=== PATIENT | male | born 1935 | race Caucasian/White ===

== ENCOUNTER 2018-05-07 13:25 | Emergency (ER) | payer MEDICARE ==
[~2018-05-07] VITALS: Ht 165.1 cm; Wt 67.0 kg
[2018-05-07] MEDS ORDERED: CefTRIAXone 1000mg IM Kit (w/lidocaine diluent) IM ONE (14:05)
[2018-05-07 14:17] LABS: CLARITY,URINE TURBID (Clear); COLOR,URINE YELLOW (Yellow); GLUCOSE, URINE NEGATIVE (Neg); KETONES,URINE NEGATIVE (Neg); LEUKOCYTE ESTERASE ,URINE LARGE (Neg); NITRITES, URINE NEGATIVE (Neg); OCCULT BLOOD,URINE MODERATE (Neg); PROTEIN,URINE 100 mg/dl (Neg); UROBILINOGEN,URINE 0.2 E.U/dL (0.2-1.0)
[2018-05-07 14:18] LABS: UA COLLECTION TYPE OTHER
[2018-05-07 14:26] LABS: BACTERIA,URINE 4+ /HPF (Neg); MUCUS STRANDS NONE SEEN /LPF (Neg); SQUAMOUS EPITHELIAL CELL,UR NONE SEEN /LPF (FEW); WBC CLUMPS,URINE MANY /HPF (NEGATIVE); WBC,URINE TNTC /HPF (0-4)
[2018-05-07 14:31] LABS: BASOPHILS % (AUTO) 0.3 % (0-1); EOSINOPHILS # (AUTO) 0.1 X10'3 (0-0.9); EOSINOPHILS % (AUTO) 0.6 % (0-6); HEMATOCRIT 34.8 % (42.0-52.0); HEMOGLOBIN 11.6 g/dl (14.0-17.9); LYMPHOCYTES # (AUTO) 0.6 X10'3 (1.1-4.8); LYMPHOCYTES % (AUTO) 7.3 % (21-51); MEAN CORPUSCULAR HEMOGLOBIN 29.8 PG (27.0-31.0); MEAN CORPUSCULAR HGB CONC 33.3 % (33.0-36.5); MEAN CORPUSCULAR VOLUME 89.5 FL (78-98); MEAN PLATELET VOLUME 9.6 FL (7.4-10.4); MONOCYTES # (AUTO) 1.2 X10'3 (0-0.9); MONOCYTES % (AUTO) 14.2 % (2-12); NEUTROPHILS # (AUTO) 6.5 X10'3 (1.8-7.7); NEUTROPHILS % (AUTO) 77.6 % (42-75); PLATELET COUNT 210 X10'3 (140-440); RED BLOOD COUNT 3.89 X10'6 (4.70-6.10); RED CELL DISTRIBUTION WIDTH 13.7 % (11.5-14.5); WHITE BLOOD COUNT 8.4 X10'3 (4.5-11.0)
[2018-05-07] MEDS ORDERED: CEPH500C5 PO (14:37)
[2018-05-07 14:40] LABS: ALBUMIN 2.7 G/DL (3.4-5.0); ANION GAP 13 (8-16); BLOOD UREA NITROGEN 52 MG/DL (7-18); BUN/CREATININE RATIO 19.7 (5.4-32.0); CALCIUM 8.7 MG/DL (8.5-10.1); CHLORIDE 90 MMOL/L (99-107); CREATININE 2.64 MG/DL (0.60-1.10); GLUCOSE 110 MG/DL (70-104); POTASSIUM 4.3 MMOL/L (3.5-5.1); SODIUM 123 MMOL/L (135-145); eGFR 23 ML/MIN
[2018-05-07] MEDS ORDERED: normal saline 1000ML IV soln IVB ONE (15:05)
[2018-05-07] MEDS ORDERED: CefTRIAXone/D5W-Rocephin 1gm 50 ML IV ONE (15:31)
[2018-05-07 16:28] VITALS: BP 115/62
== END 2018-05-07 16:29 | disposition home or self-care (01) ==
LOC: ER 13:26
DX: N39.0 Urinary tract infection, site not specified (principal); E87.1 Hypo-osmolality and hyponatremia; Z98.890 Other specified postprocedural states; Z60.2 Problems related to living alone; Z79.2 Long term (current) use of antibiotics
CPT/HCPCS: 36415; 80048; 81001; 85025; 96365; 96372; 99283; J0696; J7030

== ENCOUNTER 2022-01-07 12:05 | Inpatient (IN) | payer MEDICARE ==
[~2022-01-07] VITALS: Ht 162.6 cm; Wt 58.9 kg
[~2022-01-07 12:05] MED LIST: CEPH-571 PO
[2022-01-07] MEDS ORDERED: aspirin 81mg tab.chew PO ONE (12:20)
[2022-01-07] MEDS ORDERED: ATOR20TA66 PO (12:28)
[2022-01-07] MEDS ORDERED: HYDR-4070 PO (12:28)
[2022-01-07] MEDS ORDERED: NITR0.4T48 SL (12:28)
[2022-01-07] MEDS ORDERED: METO25TA6 PO (12:28)
[2022-01-07] MEDS ORDERED: CLOP75TA34 PO (12:28)
[2022-01-07] MEDS ORDERED: ASPI-1264 PO (12:30)
[2022-01-07] MEDS ORDERED: ASCO500C18 PO (12:30)
[2022-01-07] MEDS ORDERED: MULT-1074 PO (12:30)
[2022-01-07] MEDS ORDERED: MULT-1141 PO (12:30)
[2022-01-07] MEDS ORDERED: MELA1TAB28 PO (12:31)
[2022-01-07 13:00] LABS: BASOPHILS % (AUTO) 0.9 % (0-1); EOSINOPHILS % (AUTO) 0.7 % (0-6); HEMOGLOBIN 11.9 g/dl (14.0-17.9); LYMPHOCYTES # (AUTO) 0.6 X10'3 (1.1-4.8); LYMPHOCYTES % (AUTO) 12.6 % (21-51); MEAN CORPUSCULAR HEMOGLOBIN 30.1 PG (27.0-31.0); MEAN CORPUSCULAR HGB CONC 33.1 g/dL (33.0-36.5); MEAN CORPUSCULAR VOLUME 91.2 FL (78-98); MEAN PLATELET VOLUME 10.7 FL (7.4-10.4); MONOCYTES # (AUTO) 0.6 X10'3 (0-0.9); MONOCYTES % (AUTO) 12.4 % (2-12); NEUTROPHILS # (AUTO) 3.7 X10'3 (1.8-7.7); NEUTROPHILS % (AUTO) 73.4 % (42-75); PLATELET COUNT 145 X10'3 (140-440); RED BLOOD COUNT 3.95 X10'6 (4.70-6.10); RED CELL DISTRIBUTION WIDTH 15.1 % (11.5-14.5); WHITE BLOOD COUNT 5.1 X10'3 (4.5-11.0)
[2022-01-07 13:27] LABS: ALANINE AMINOTRANSFERASE 25 U/L (12-78); ALBUMIN 3.2 G/DL (3.4-5.0); ALBUMIN/GLOBULIN RATIO 0.8 (1.1-1.5); ALKALINE PHOSPHATASE 85 IU/L (46-116); ANION GAP 11 (8-16); ASPARTATE AMINO TRANSFERASE 34 U/L (10-37); BILIRUBIN,TOTAL 0.5 MG/DL (0.1-1.0); BLOOD UREA NITROGEN 33 MG/DL (7-18); CALCIUM 8.7 MG/DL (8.5-10.1); CHLORIDE 101 MMOL/L (99-107); CREATININE 1.94 MG/DL (0.60-1.10); GLUCOSE 99 MG/DL (70-104); POTASSIUM 4.3 MMOL/L (3.5-5.1); SODIUM 134 MMOL/L (135-145); TOTAL CARBON DIOXIDE 22.5 MMOL/L (24-32); TOTAL PROTEIN 7.1 G/DL (6.4-8.2); eGFR 33 ML/MIN
[2022-01-07 13:50] LABS: BURR CELLS 1+; PLATELET ESTIMATE NORMAL
[2022-01-07 13:51] LABS: ACANTHOCYTES FEW; ELLIPTOCYTES FEW; SCHISTOCYTES FEW
[2022-01-07] MEDS ORDERED: heparin 10,000 units/1 ML INJ IV ONE (14:25)
[2022-01-07] MEDS ORDERED: HEPARIN SOD,PORK IN 0.45% NACL 250 ML IV SCH (14:25)
[2022-01-07] MEDS ORDERED: HYDROcodone/acetaminophen 10/325mg tab PO PRN (14:35)
[2022-01-07] MEDS ORDERED: HYDROcodone/acetaminophen 5mg/325mg tablet PO PRN (14:35)
[2022-01-07] MEDS ORDERED: ondansetron/PF 4mg/2ml inj IV PRN (14:35)
[2022-01-07] MEDS ORDERED: magnesium Cl slow-release 64mg tablet PO PRN (14:35)
[2022-01-07] MEDS ORDERED: PERFLUTREN PROTEIN-A MICROSPHR (Optison) 0.22 MG/ML 3ML VIAL IV ONE (14:35)
[2022-01-07] MEDS ORDERED: morphine 2 MG/ML inj. syringe IV PRN ×2 (14:35)
[2022-01-07] MEDS ORDERED: magnesium 4gm in 100ml NS 100 ML IV PRN (14:35)
[2022-01-07] MEDS ORDERED: ondansetron 4mg rapidly disintigrating tab PO PRN (14:35)
[2022-01-07] MEDS ORDERED: magnesium hydroxide 30ml (MOM) UD suspension PO PRN (14:35)
[2022-01-07] MEDS ORDERED: diphenhydrAMINE 25mg capsule PO PRN (14:35)
[2022-01-07] MEDS ORDERED: magnesium 2GM in 50ml NS 50 ML IV PRN (14:35)
[2022-01-07] MEDS ORDERED: acetaminophen 650mg rectal suppository RC PRN (14:35)
[2022-01-07] MEDS ORDERED: potassium CL 10mEq/100ml bag 100 ML IV PRN (14:35)
[2022-01-07] MEDS ORDERED: POTASSIUM BICARB 20meq eff tab 20 MEQ TABLET.EFF PO PRN (14:35)
[2022-01-07] MEDS ORDERED: mag hydrox/Alum hydrox/simeth 30ml oral suspension PO PRN (14:35)
[2022-01-07] MEDS ORDERED: acetaminophen 325mg tablet PO PRN ×2 (14:35)
[2022-01-07] MEDS ORDERED: bisacodyl 10mg suppository rectal RC PRN (14:35)
[2022-01-07] MEDS: HEPARIN SOD,PORK IN 0.45% NACL 250 ML IV SCH (14:54)
--- NOTE | 2022-01-07 15:15 | NUR ---
DR GUERIN AND DR CLEMONS AT BEDSIDE TO ASSESS PATIENT AT THIS TIME.
[2022-01-07] MEDS ORDERED: Melatonin 3mg tablet PO PRN (15:35)
[2022-01-07 16:40] LABS: APTT > 139 SECONDS (22-32)
--- NOTE | 2022-01-07 16:45 | NUR ---
Page sent to Dr Hemphill for PTT >139, heparin infusion stopped per protocol (see EMAR).
[2022-01-07] MEDS: hydrALAZINE 25 MG tablet PO SCH (18:23)
[2022-01-07] MEDS: K and/or MAG REPLACEMENT MC SCH (19:58)
[2022-01-07] MEDS: docusate sod 100mg capsule PO SCH (20:00)
[2022-01-07] MEDS: metoprolol tartrate 25mg tablet PO SCH (20:44)
[2022-01-07] MEDS ORDERED: temazepam 15mg capsule PO ONE (21:00)
--- NOTE | 2022-01-08 06:12 | NUR ---
PT DAUGHTER AND SARA GRADY WOULD APPRECIATE BEING PROVIDED UPDATES. CONTACT VIA [phone] OR [phone]
[2022-01-08] MEDS: hydrALAZINE 25 MG tablet PO SCH ×2 (08:00→18:08)
[2022-01-08] MEDS ORDERED: furosemide 10 MG/1 ML 10ml inj IV ONE (08:00)
[2022-01-08] MEDS: K and/or MAG REPLACEMENT MC SCH ×2 (08:00→20:00)
[2022-01-08] MEDS: aspirin 325mg tablet PO SCH (08:00)
[2022-01-08] MEDS: atorvastatin 20mg tablet PO SCH (08:01)
[2022-01-08] MEDS: ascorbic acid 500mg tablet PO SCH (08:01)
[2022-01-08] MEDS: docusate sod 100mg capsule PO SCH ×2 (08:01→20:04)
[2022-01-08] MEDS: multivitamins, therapeutics tablet PO SCH (08:02)
[2022-01-08] MEDS: metoprolol tartrate 25mg tablet PO SCH ×2 (08:02→20:05)
[2022-01-08 09:27] LABS: BASOPHILS # (AUTO) 0.1 X10'3 (0-0.2); BASOPHILS % (AUTO) 1.3 % (0-1); EOSINOPHILS # (AUTO) 0.1 X10'3 (0-0.9); EOSINOPHILS % (AUTO) 2.7 % (0-6); HEMATOCRIT 34.4 % (42.0-52.0); HEMOGLOBIN 11.4 g/dl (14.0-17.9); LYMPHOCYTES # (AUTO) 0.8 X10'3 (1.1-4.8); LYMPHOCYTES % (AUTO) 18.7 % (21-51); MEAN CORPUSCULAR HEMOGLOBIN 30.4 PG (27.0-31.0); MEAN CORPUSCULAR HGB CONC 33.1 g/dL (33.0-36.5); MEAN CORPUSCULAR VOLUME 91.7 FL (78-98); MEAN PLATELET VOLUME 10.5 FL (7.4-10.4); MONOCYTES # (AUTO) 0.6 X10'3 (0-0.9); MONOCYTES % (AUTO) 14.4 % (2-12); NEUTROPHILS # (AUTO) 2.7 X10'3 (1.8-7.7); NEUTROPHILS % (AUTO) 62.9 % (42-75); PLATELET COUNT 124 X10'3 (140-440); RED BLOOD COUNT 3.75 X10'6 (4.70-6.10); WHITE BLOOD COUNT 4.3 X10'3 (4.5-11.0)
[2022-01-08 09:53] LABS: ALANINE AMINOTRANSFERASE 21 U/L (12-78); ALBUMIN 2.9 G/DL (3.4-5.0); ALBUMIN/GLOBULIN RATIO 0.8 (1.1-1.5); ALKALINE PHOSPHATASE 79 IU/L (46-116); ANION GAP 15 (8-16); ASPARTATE AMINO TRANSFERASE 31 U/L (10-37); BILIRUBIN,TOTAL 0.5 MG/DL (0.1-1.0); BLOOD UREA NITROGEN 31 MG/DL (7-18); BUN/CREATININE RATIO 16.8 (5.4-32.0); CALCIUM 8.5 MG/DL (8.5-10.1); CHLORIDE 103 MMOL/L (99-107); CHOL/HDL RATIO 1.8 (0.00-4.99); CHOLESTEROL 94 MG/DL (0-200); CREATININE 1.85 MG/DL (0.60-1.10); GLUCOSE 100 MG/DL (70-104); HDL CHOLESTEROL 51 MG/DL (35-60); LDL CHOLESTEROL 37 MG/DL (50-100); MAGNESIUM 2.1 MG/DL (1.5-2.4); PHOSPHORUS 3.9 MG/DL (2.3-4.5); POTASSIUM 3.9 MMOL/L (3.5-5.1); SODIUM 138 MMOL/L (135-145); TOTAL CARBON DIOXIDE 19.8 MMOL/L (24-32); TOTAL PROTEIN 6.6 G/DL (6.4-8.2); TRIGLYCERIDES 41 MG/DL (20-135); eGFR 35 ML/MIN
--- NOTE | 2022-01-08 10:40 | NUR ---
Received report from ED RN, Eden
[2022-01-08] MEDS: heparin 10,000 units/1 ML INJ IV PRN (11:02)
[2022-01-08] MEDS: HEPARIN SOD,PORK IN 0.45% NACL 250 ML IV SCH ×2 (11:40→19:04)
[2022-01-08 11:45] VITALS: BP 128/75
[2022-01-08] MEDS: clopidogrel 75mg tablet PO SCH (12:53)
[2022-01-08 13:40] VITALS: BP 129/77
[2022-01-08] MEDS ORDERED: LIDOcaine 1%/PF 5ML 10 MG/ML VIAL ONE (14:59)
[2022-01-08 15:00] VITALS: BP 114/64
[2022-01-08 15:50] VITALS: BP 115/69
[2022-01-08 16:22] LABS: BFSOURCE LEFT PLEURAL FLD; PLEURAL FLUID PH 7.522 (7.63-7.65)
[2022-01-08 16:43] LABS: GLUCOSE,BODY FLUID 103 MG/DL; LDH,BODY FLUID 51 U/L; TOTAL PROTEIN,BODY FLUID 2.1 G/DL
[2022-01-08 17:07] LABS: CLARITY,URINE CLOUDY (Clear); GLUCOSE, URINE NEGATIVE (Neg); KETONES,URINE NEGATIVE (Neg); LEUKOCYTE ESTERASE ,URINE LARGE (Neg); NITRITES, URINE POSITIVE (Neg); OCCULT BLOOD,URINE SMALL (Neg); PH,URINE 8.5 (4.8-8.0); PROTEIN,URINE NEGATIVE (Neg); UROBILINOGEN,URINE 0.2 E.U/dL (0.2-1.0)
[2022-01-08 17:10] LABS: BF RBC COUNT 31 /CU MM; BF WBC COUNT 127 /CU MM (0-1000); BFAPPEAR HAZY; BFCOLOR YELLOW; BFVOLUME 50 ML; LYMPHOCYTES,BODY FLUID 58 %; MONOCYTES,BODY FLUID 32 %; NEUTROPHILS,BODY FLUID 10 %
[2022-01-08 17:14] LABS: COLOR,URINE STRAW (Yellow); UA COLLECTION TYPE NON-SPECIFIED
[2022-01-08 17:16] LABS: BACTERIA,URINE 4+ /HPF (Neg); MUCUS STRANDS MODERATE /LPF (Neg); SQUAMOUS EPITHELIAL CELL,UR FEW /LPF (FEW); TRIPLE PHOSPHATE CRYST 3+ /HPF (NEGATIVE); WBC,URINE 20-30 /HPF (0-4)
[2022-01-08] MEDS ORDERED: temazepam 15mg capsule PO PRN (18:25)
--- NOTE | 2022-01-08 19:30 | NUR ---
Problems reprioritized. Patient report given, questions answered & plan of care reviewed with ETELVINA Sales.
[2022-01-08] MEDS: furosemide 10 MG/1 ML 10ml inj IV SCH (20:04)
[2022-01-09 02:00] VITALS: BP 112/67
[2022-01-09] MEDS: HEPARIN SOD,PORK IN 0.45% NACL 250 ML IV SCH ×2 (02:40→11:40)
[2022-01-09] MEDS: heparin 10,000 units/1 ML INJ IV PRN (02:42)
[2022-01-09 06:00] VITALS: BP 123/66
--- NOTE | 2022-01-09 06:30 | NUR ---
Patient in room PCU 3026. I have received report from ETELVINA Sales and had the opportunity to ask questions and assume patient care.
--- NOTE | 2022-01-09 06:39 | NUR ---
Problems reprioritized. Patient report given, questions answered & plan of care reviewed with [facility] MAIN. Addendum: 01/09/22 at 0639 by Mónica Agustin RN Amended: Links added.
[2022-01-09] MEDS: metoprolol tartrate 25mg tablet PO SCH (08:00)
[2022-01-09 10:28] LABS: BASOPHILS # (AUTO) 0.1 X10'3 (0-0.2); BASOPHILS % (AUTO) 0.9 % (0-1); EOSINOPHILS # (AUTO) 0.1 X10'3 (0-0.9); EOSINOPHILS % (AUTO) 2.2 % (0-6); HEMATOCRIT 36.4 % (42.0-52.0); HEMOGLOBIN 12.2 g/dl (14.0-17.9); LYMPHOCYTES # (AUTO) 0.9 X10'3 (1.1-4.8); LYMPHOCYTES % (AUTO) 17.6 % (21-51); MEAN CORPUSCULAR HEMOGLOBIN 30.4 PG (27.0-31.0); MEAN CORPUSCULAR HGB CONC 33.4 g/dL (33.0-36.5); MONOCYTES # (AUTO) 0.7 X10'3 (0-0.9); MONOCYTES % (AUTO) 13.7 % (2-12); NEUTROPHILS # (AUTO) 3.5 X10'3 (1.8-7.7); NEUTROPHILS % (AUTO) 65.6 % (42-75); PLATELET COUNT 138 X10'3 (140-440); RED CELL DISTRIBUTION WIDTH 14.9 % (11.5-14.5); WHITE BLOOD COUNT 5.4 X10'3 (4.5-11.0)
[2022-01-09 10:49] LABS: ALANINE AMINOTRANSFERASE 24 U/L (12-78); ALBUMIN 2.8 G/DL (3.4-5.0); ALBUMIN/GLOBULIN RATIO 0.8 (1.1-1.5); ALKALINE PHOSPHATASE 78 IU/L (46-116); ANION GAP 9 (8-16); ASPARTATE AMINO TRANSFERASE 23 U/L (10-37); BILIRUBIN,TOTAL 0.4 MG/DL (0.1-1.0); BLOOD UREA NITROGEN 34 MG/DL (7-18); BUN/CREATININE RATIO 15.6 (5.4-32.0); CALCIUM 8.1 MG/DL (8.5-10.1); CHLORIDE 102 MMOL/L (99-107); CREATININE 2.18 MG/DL (0.60-1.10); GLUCOSE 117 MG/DL (70-104); MAGNESIUM 1.8 MG/DL (1.5-2.4); PHOSPHORUS 3.8 MG/DL (2.3-4.5); POTASSIUM 3.3 MMOL/L (3.5-5.1); SODIUM 136 MMOL/L (135-145); TOTAL CARBON DIOXIDE 25.3 MMOL/L (24-32); TOTAL PROTEIN 6.5 G/DL (6.4-8.2); eGFR 29 ML/MIN
[2022-01-09] MEDS: K and/or MAG REPLACEMENT MC SCH (11:46)
[2022-01-09] MEDS: multivitamins, therapeutics tablet PO SCH (11:54)
[2022-01-09] MEDS: aspirin 325mg tablet PO SCH (11:54)
[2022-01-09] MEDS: clopidogrel 75mg tablet PO SCH (11:54)
[2022-01-09] MEDS: hydrALAZINE 25 MG tablet PO SCH ×2 (11:54→16:41)
[2022-01-09] MEDS: docusate sod 100mg capsule PO SCH (11:54)
[2022-01-09] MEDS: atorvastatin 20mg tablet PO SCH (11:54)
[2022-01-09] MEDS: ascorbic acid 500mg tablet PO SCH (11:54)
[2022-01-09] MEDS: furosemide 10 MG/1 ML 10ml inj IV SCH (11:55)
[2022-01-09] MEDS: POTASSIUM BICARB 20meq eff tab 20 MEQ TABLET.EFF PO PRN ×2 (12:02→16:40)
[2022-01-09] MEDS ORDERED: POTA-206 PO (12:05)
[2022-01-09] MEDS ORDERED: FURO-150 PO (12:05)
[2022-01-09 15:00] VITALS: BP 120/65
[2022-01-09] MEDS ORDERED: CEFD300C3 PO (15:40)
[2022-01-09] MEDS ORDERED: TEMA30CA5 PO (15:40)
[2022-01-09] MEDS ORDERED: CefTRIAXone/D5W-Rocephin 1gm 50 ML IV ONE (15:45)
[2022-01-09 16:41] VITALS: BP_SYST 118
--- NOTE | 2022-01-09 17:20 | NUR ---
DC inst provided to pt & pt's daughter. IV DC'd, tip intact. All belongings sent w/pt. Pt ambulated to vehicle.
== END 2022-01-09 17:30 | disposition home or self-care (01) | DRG 280 ==
LOC: ER 12:06 → ED HOLD 14:39 → PCU 3S 01-08 11:28
PROVIDERS: ADMIT Family Medicine; ATTEND Family Medicine
PROC: 0W9B3ZX Drainage of Left Pleural Cavity, Percutaneous Approach, Diagnostic (ICD-10-PCS; principal; 2022-01-08)
PROC: 0W993ZX Drainage of Right Pleural Cavity, Percutaneous Approach, Diagnostic (ICD-10-PCS; 2022-01-08)
DX: I21.4 Non-ST elevation (NSTEMI) myocardial infarction (principal); I50.23 Acute on chronic systolic (congestive) heart failure; N17.9 Acute kidney failure, unspecified; I13.0 Hypertensive heart and chronic kidney disease with heart failure and stage 1 through stage 4 chronic kidney disease, or unspecified chronic kidney disease; J91.8 Pleural effusion in other conditions classified elsewhere; N39.0 Urinary tract infection, site not specified; N18.4 Chronic kidney disease, stage 4 (severe); Z66 Do not resuscitate; E78.5 Hyperlipidemia, unspecified; Z60.2 Problems related to living alone; B96.20 Unspecified Escherichia coli [E. coli] as the cause of diseases classified elsewhere; I25.10 Atherosclerotic heart disease of native coronary artery without angina pectoris; I25.5 Ischemic cardiomyopathy; I25.2 Old myocardial infarction; Z28.310 Unvaccinated for COVID-19; Z79.02 Long term (current) use of antithrombotics/antiplatelets; Z79.82 Long term (current) use of aspirin; Z79.899 Other long term (current) drug therapy; Z85.51 Personal history of malignant neoplasm of bladder; Z87.442 Personal history of urinary calculi; Z87.891 Personal history of nicotine dependence; Z93.6 Other artificial openings of urinary tract status; Z87.440 Personal history of urinary (tract) infections; Z86.16 Personal history of COVID-19
CPT/HCPCS: 32555; 36415; 71045; 80053; 80061; 81001; 82945; 83036; 83615; 83735; 83880; 83986; 84100; 84157; 84484; 85008; 85025; 85730; 87015; 87070; 87077; 87081; 87088; 87186; 89051; 93306; 96374; 99285; A4357; A4615; G0378; J0696; J1644; J1940; J3490

== ENCOUNTER 2022-02-10 12:37 | Inpatient (IN) | payer MEDICARE ==
[~2022-02-10] VITALS: Ht 162.6 cm; Wt 59.1 kg
[~2022-02-10 12:37] MED LIST changes: +ASCO500C18 PO; +ASPI-1264 PO; +ATOR20TA66 PO; -CEPH-571 PO; +CLOP75TA34 PO; +HYDR-4070 PO; +MELA1TAB28 PO; +METO25TA6 PO; +MULT-1141 PO; +NITR0.4T48 SL; +POTA-206 PO
[2022-02-10 13:18] LABS: BASOPHILS % (AUTO) 0.2 % (0-1); EOSINOPHILS % (AUTO) 0.2 % (0-6); HEMATOCRIT 41.2 % (42.0-52.0); HEMOGLOBIN 13.7 g/dl (14.0-17.9); LYMPHOCYTES # (AUTO) 0.3 X10'3 (1.1-4.8); LYMPHOCYTES % (AUTO) 4.4 % (21-51); MEAN CORPUSCULAR HGB CONC 33.2 g/dL (33.0-36.5); MEAN CORPUSCULAR VOLUME 90.4 FL (78-98); MEAN PLATELET VOLUME 10.6 FL (7.4-10.4); MONOCYTES # (AUTO) 0.9 X10'3 (0-0.9); MONOCYTES % (AUTO) 11.9 % (2-12); NEUTROPHILS # (AUTO) 6.6 X10'3 (1.8-7.7); NEUTROPHILS % (AUTO) 83.3 % (42-75); PLATELET COUNT 109 X10'3 (140-440); RED BLOOD COUNT 4.55 X10'6 (4.70-6.10); RED CELL DISTRIBUTION WIDTH 15.2 % (11.5-14.5); WHITE BLOOD COUNT 7.9 X10'3 (4.5-11.0)
[2022-02-10 13:32] LABS: LARGE PLATELETS FEW; PLATELET ESTIMATE DECREASED
[2022-02-10 13:33] LABS: ELLIPTOCYTES FEW; POIKILOCYTOSIS 1+
[2022-02-10 13:34] LABS: BURR CELLS 1+
[2022-02-10 13:35] LABS: ACANTHOCYTES FEW
[2022-02-10 13:43] LABS: ALBUMIN 3.1 G/DL (3.4-5.0); ALBUMIN/GLOBULIN RATIO 0.8 (1.1-1.5); ALKALINE PHOSPHATASE 338 IU/L (46-116); ANION GAP 18 (8-16); BILIRUBIN,TOTAL 1.5 MG/DL (0.1-1.0); BLOOD UREA NITROGEN 86 MG/DL (7-18); CALCIUM 9.3 MG/DL (8.5-10.1); CHLORIDE 95 MMOL/L (99-107); CREATININE 3.74 MG/DL (0.60-1.10); GLUCOSE 93 MG/DL (70-104); POTASSIUM 5.9 MMOL/L (3.5-5.1); SODIUM 129 MMOL/L (135-145); TOTAL CARBON DIOXIDE 16.4 MMOL/L (24-32); eGFR 15 ML/MIN
[2022-02-10 13:56] LABS: ALANINE AMINOTRANSFERASE 3424 U/L (12-78)
[2022-02-10] MEDS ORDERED: albuterol 2.5 MG/3 ML nebule CONTNEB PRN (14:15)
[2022-02-10] MEDS ORDERED: insulin regular, human 10 units/0.1 ml syringe IV ONE (14:15)
[2022-02-10 14:28] LABS: ASPARTATE AMINO TRANSFERASE 2373 U/L (10-37)
[2022-02-10] MEDS: dextrose 5%-normal saline 1,000 ML IV SCH (15:10)
[2022-02-10] MEDS ORDERED: morphine 2 MG/ML inj. syringe IV PRN ×2 (16:25)
[2022-02-10] MEDS ORDERED: mag hydrox/Alum hydrox/simeth 30ml oral suspension PO PRN (16:25)
[2022-02-10] MEDS ORDERED: ondansetron/PF 4mg/2ml inj IV PRN (16:25)
[2022-02-10] MEDS ORDERED: acetaminophen 325mg tablet PO PRN ×2 (16:25)
[2022-02-10] MEDS ORDERED: magnesium hydroxide 30ml (MOM) UD suspension PO PRN (16:25)
[2022-02-10 17:33] LABS: CLARITY,URINE Turbid (Clear); COLOR,URINE YELLOW (Yellow); UA COLLECTION TYPE NON-SPECIFIED
[2022-02-10 17:34] LABS: GLUCOSE, URINE NEGATIVE (Neg); KETONES,URINE TRACE mg/dl (Neg); NITRITES, URINE NEGATIVE (Neg); PROTEIN,URINE NEGATIVE (Neg)
[2022-02-10 17:35] LABS: LEUKOCYTE ESTERASE ,URINE LARGE (Neg); OCCULT BLOOD,URINE LARGE (Neg); UROBILINOGEN,URINE 0.2 E.U/dL (0.2-1.0)
[2022-02-10 17:39] LABS: BACTERIA,URINE 3+ /HPF (Neg); WBC,URINE TNTC /HPF (0-4)
[2022-02-10 17:40] LABS: SQUAMOUS EPITHELIAL CELL,UR NONE SEEN /LPF (FEW)
[2022-02-10] MEDS ORDERED: TRAZ-251 PO (18:59)
[2022-02-10] MEDS: docusate sod 100mg capsule PO SCH (19:23)
[2022-02-10] MEDS: heparin, porcine 5000 units/ml vial SQ SCH (19:24)
[2022-02-10] MEDS ORDERED: furosemide 20 MG/2 ML vial IV SCH (20:00)
[2022-02-10] MEDS ORDERED: CefTRIAXone 2gm/D5W 50ml BAG 50 ML IV ONE (22:05)
[2022-02-11] MEDS: dextrose 5%-normal saline 1,000 ML IV SCH ×3 (00:33→21:50)
[2022-02-11 03:10] LABS: BASOPHILS % (AUTO) 0.2 % (0-1); EOSINOPHILS % (AUTO) 0.1 % (0-6); HEMATOCRIT 33.8 % (42.0-52.0); HEMOGLOBIN 11.4 g/dl (14.0-17.9); LYMPHOCYTES # (AUTO) 0.5 X10'3 (1.1-4.8); LYMPHOCYTES % (AUTO) 6.7 % (21-51); MEAN CORPUSCULAR HEMOGLOBIN 29.9 PG (27.0-31.0); MEAN CORPUSCULAR HGB CONC 33.8 g/dL (33.0-36.5); MEAN CORPUSCULAR VOLUME 88.4 FL (78-98); MEAN PLATELET VOLUME 10.4 FL (7.4-10.4); MONOCYTES % (AUTO) 13.8 % (2-12); NEUTROPHILS # (AUTO) 5.7 X10'3 (1.8-7.7); NEUTROPHILS % (AUTO) 79.2 % (42-75); PLATELET COUNT 83 X10'3 (140-440); RED BLOOD COUNT 3.82 X10'6 (4.70-6.10); RED CELL DISTRIBUTION WIDTH 15.1 % (11.5-14.5); WHITE BLOOD COUNT 7.2 X10'3 (4.5-11.0)
[2022-02-11 03:16] LABS: ALBUMIN 2.4 G/DL (3.4-5.0); ANION GAP 13 (8-16); BLOOD UREA NITROGEN 80 MG/DL (7-18); BUN/CREATININE RATIO 24.5 (5.4-32.0); CHLORIDE 101 MMOL/L (99-107); CREATININE 3.27 MG/DL (0.60-1.10); GLUCOSE 142 MG/DL (70-104); POTASSIUM 4.6 MMOL/L (3.5-5.1); SODIUM 131 MMOL/L (135-145); TOTAL CARBON DIOXIDE 16.7 MMOL/L (24-32); eGFR 18 ML/MIN
[2022-02-11 07:56] LABS: ALBUMIN/GLOBULIN RATIO 0.7 (1.1-1.5); ALKALINE PHOSPHATASE 241 IU/L (46-116); ASPARTATE AMINO TRANSFERASE 892 U/L (10-37); BILIRUBIN,TOTAL 0.8 MG/DL (0.1-1.0); TOTAL PROTEIN 5.7 G/DL (6.4-8.2)
[2022-02-11 07:58] LABS: ALANINE AMINOTRANSFERASE 2192 U/L (12-78)
[2022-02-11] MEDS ORDERED: CefTRIAXone/D5W-Rocephin 1gm 50 ML IV SCH (08:00)
--- NOTE | 2022-02-11 08:02 | NUR ---
PAGED DR TEJADA AND SPOKE TO MD REGARDING ELEVATED PROBNP LEVEL AND ORDER FOR IV FLUIDS , PER MD CONT THE IV FLUID PT IS DRY ,NO NEED OF BLD CULTURE ,OKAY TO START THE IV ROCEPHIN .WILL FOLLOW THE ORDERS.
[2022-02-11] MEDS: docusate sod 100mg capsule PO SCH ×2 (08:06→20:40)
[2022-02-11] MEDS: heparin, porcine 5000 units/ml vial SQ SCH (08:07)
--- NOTE | 2022-02-11 13:18 | NUR ---
Attempt to call report ,[facility] and [facility] are busy and they will call us back .notified charge [facility].
--- NOTE | 2022-02-11 13:46 | NUR ---
PT UROSTOMU CONNECTION TO LEG BAG GOT DISCONNECTED AND PT BED WAS SATURATED WITH URINE,CHANGED THE BEDDING AND CLOTHES.
[2022-02-11 14:20] VITALS: BP 122/73
[2022-02-11 16:00] VITALS: BP 116/67
--- NOTE | 2022-02-11 16:35 | NUR ---
Called in report to [facility] on Telemetry.
--- NOTE | 2022-02-11 16:45 | NUR ---
Transferred patient to room 3014B on Telemetry. Transferred care of patient to [facility].
[2022-02-11] MEDS ORDERED: Melatonin 3mg tablet PO PRN (16:55)
[2022-02-11 17:00] VITALS: BP 120/80
--- NOTE | 2022-02-11 17:29 | NUR ---
PATIENT ARRIVED TO FLOOR, ASSISTED TO BED FROM W/C. IV FLUIDS STARTED ORDERED. PT IS A&OX4 CALL LIGHT IN REACH. BED LOW. VS STABLE
[2022-02-11 18:00] VITALS: BP 123/71
--- NOTE | 2022-02-11 18:00 | NUR ---
Patient in room PCU 3014. I have received report from Ruben and had the opportunity to ask questions and assume patient care. Drip verified. Skin check done together. Pt resting in bed at handoff.
[2022-02-11] MEDS ORDERED: LOP12.5T PO (18:52)
--- NOTE | 2022-02-11 20:05 | NUR ---
Called and spoke with Dr. Wang due to pt going from [facility] to [facility]. EKG done and read Dr. results especially SVT in 166bpm. Updated MD on pt status. New order given for metoprolol. See order for details.
[2022-02-11] MEDS ORDERED: metoprolol tartrate 12.5mg (1/2 tablet) PO STA (20:06)
[2022-02-11 20:45] VITALS: BP 117/64
[2022-02-11] MEDS ORDERED: traZODone 50mg tablet PO SCH (21:00)
[2022-02-11 22:00] VITALS: BP 121/70
[2022-02-12 02:00] VITALS: BP 100/55
[2022-02-12] MEDS: dextrose 5%-normal saline 1,000 ML IV SCH (05:39)
--- NOTE | 2022-02-12 06:30 | NUR ---
Patient in room PCU 3014. I have received report from ETELVINA Dawson and had the opportunity to ask questions and assume patient care.
--- NOTE | 2022-02-12 06:36 | NUR ---
Problems reprioritized. Patient report given, questions answered & plan of care reviewed with Carla. Drip verified. Pt in no acute distress at time of handoff.
[2022-02-12] MEDS ORDERED: vancomycin/NS 1 GM ADD-VANTAGE 250 ML IV ONE (07:00)
[2022-02-12] MEDS ORDERED: atorvastatin 20mg tablet PO SCH (08:00)
[2022-02-12] MEDS ORDERED: vancomycin/NS 1 GM ADD-VANTAGE 250 ML IV PRN (08:00)
[2022-02-12] MEDS ORDERED: ascorbic acid 500mg tablet PO SCH (08:00)
[2022-02-12] MEDS ORDERED: aspirin 325mg tablet PO SCH (08:00)
[2022-02-12] MEDS ORDERED: clopidogrel 75mg tablet PO SCH (08:00)
[2022-02-12] MEDS ORDERED: multivitamins, therapeutics tablet PO SCH (08:00)
[2022-02-12 08:26] LABS: BASOPHILS % (AUTO) 0.3 % (0-1); EOSINOPHILS # (AUTO) 0.1 X10'3 (0-0.9); EOSINOPHILS % (AUTO) 1.1 % (0-6); HEMATOCRIT 32.8 % (42.0-52.0); HEMOGLOBIN 10.9 g/dl (14.0-17.9); LYMPHOCYTES # (AUTO) 0.5 X10'3 (1.1-4.8); LYMPHOCYTES % (AUTO) 8.7 % (21-51); MEAN CORPUSCULAR HEMOGLOBIN 30.2 PG (27.0-31.0); MEAN CORPUSCULAR HGB CONC 33.2 g/dL (33.0-36.5); MEAN CORPUSCULAR VOLUME 90.8 FL (78-98); MEAN PLATELET VOLUME 10.6 FL (7.4-10.4); MONOCYTES # (AUTO) 0.8 X10'3 (0-0.9); MONOCYTES % (AUTO) 15.4 % (2-12); NEUTROPHILS # (AUTO) 4.1 X10'3 (1.8-7.7); NEUTROPHILS % (AUTO) 74.5 % (42-75); PLATELET COUNT 57 X10'3 (140-440); RED BLOOD COUNT 3.61 X10'6 (4.70-6.10); WHITE BLOOD COUNT 5.4 X10'3 (4.5-11.0)
[2022-02-12 08:51] LABS: ALBUMIN 2.1 G/DL (3.4-5.0); ALBUMIN/GLOBULIN RATIO 0.7 (1.1-1.5); ALKALINE PHOSPHATASE 216 IU/L (46-116); ANION GAP 14 (8-16); ASPARTATE AMINO TRANSFERASE 308 U/L (10-37); BILIRUBIN,TOTAL 0.6 MG/DL (0.1-1.0); BLOOD UREA NITROGEN 57 MG/DL (7-18); BUN/CREATININE RATIO 25.7 (5.4-32.0); CALCIUM 7.4 MG/DL (8.5-10.1); CHLORIDE 111 MMOL/L (99-107); CREATININE 2.22 MG/DL (0.60-1.10); GLUCOSE 102 MG/DL (70-104); POTASSIUM 4.2 MMOL/L (3.5-5.1); SODIUM 142 MMOL/L (135-145); TOTAL CARBON DIOXIDE 17.4 MMOL/L (24-32); TOTAL PROTEIN 5.2 G/DL (6.4-8.2); eGFR 28 ML/MIN
[2022-02-12 08:59] LABS: ALANINE AMINOTRANSFERASE 1314 U/L (12-78)
[2022-02-12] MEDS ORDERED: metoprolol tartrate 25mg tablet PO SCH (09:00)
[2022-02-12] MEDS ORDERED: nystatin 15 GM powder TP SCH (09:00)
[2022-02-12 09:14] LABS: LARGE PLATELETS FEW; PLATELET ESTIMATE DECREASED
[2022-02-12 09:15] LABS: ACANTHOCYTES 1+; BURR CELLS 2+; ELLIPTOCYTES FEW; POIKILOCYTOSIS 1+
[2022-02-12 10:00] VITALS: BP 122/74
[2022-02-12] MEDS ORDERED: SULF1TAB49 PO (11:21)
[2022-02-12] MEDS: docusate sod 100mg capsule PO SCH (11:29)
--- NOTE | 2022-02-12 15:15 | NUR ---
Pt fell in the restroom. Pt's daughter asking for help, but did not witness the fall. Pt states no injuries & did not hit his head. Assessed pt & no injuries or new bruises noted. Pt states, "I am fine." & able to help pt up easily with pt mostly lifting himself from the floor. Pt then proceeded to get dressed with his daughters help & ready for DC home with his daughter whom he lives with.
--- NOTE | 2022-02-12 15:30 | NUR ---
DC inst provided to pt & pt's daughter, Sydni. IV DC'd, tip intact. All belongings sent w/pt. WC to vehicle.
[2022-02-13] MEDS ORDERED: VANCOMYCIN LEVEL IV SCH (03:00)
== END 2022-02-12 15:36 | disposition home health service (06) | DRG 682 ==
LOC: ER 12:37 → ED HOLD 16:29 → PCU 3S 02-11 17:11
PROVIDERS: ADMIT Internal Medicine; ATTEND Internal Medicine
DX: N17.9 Acute kidney failure, unspecified (principal); K72.00 Acute and subacute hepatic failure without coma; I13.0 Hypertensive heart and chronic kidney disease with heart failure and stage 1 through stage 4 chronic kidney disease, or unspecified chronic kidney disease; I48.3 Typical atrial flutter; I50.22 Chronic systolic (congestive) heart failure; N13.6 Pyonephrosis; N18.4 Chronic kidney disease, stage 4 (severe); E87.5 Hyperkalemia; E86.0 Dehydration; Z66 Do not resuscitate; K76.0 Fatty (change of) liver, not elsewhere classified; B95.62 Methicillin resistant Staphylococcus aureus infection as the cause of diseases classified elsewhere; E78.5 Hyperlipidemia, unspecified; I25.10 Atherosclerotic heart disease of native coronary artery without angina pectoris; D64.9 Anemia, unspecified; D69.6 Thrombocytopenia, unspecified; Z60.2 Problems related to living alone; G47.00 Insomnia, unspecified; I95.9 Hypotension, unspecified; R19.7 Diarrhea, unspecified; K46.9 Unspecified abdominal hernia without obstruction or gangrene; I27.20 Pulmonary hypertension, unspecified; I35.0 Nonrheumatic aortic (valve) stenosis; Z79.02 Long term (current) use of antithrombotics/antiplatelets; I25.2 Old myocardial infarction; Z79.82 Long term (current) use of aspirin; Z79.899 Other long term (current) drug therapy; Z85.51 Personal history of malignant neoplasm of bladder; Z87.442 Personal history of urinary calculi; Z93.6 Other artificial openings of urinary tract status; Z88.8 Allergy status to other drugs, medicaments and biological substances
CPT/HCPCS: 36415; 71045; 74176; 76700; 80053; 81001; 83880; 84484; 85008; 85025; 87077; 87081; 87088; 87186; 93005; 94640; 94760; 96374; 99285; A4340; A4358; A6213; A7015; G0378; J0696; J1644; J1815; J3370; J7042

== ENCOUNTER 2022-02-25 01:47 | Inpatient (IN) | payer MEDICARE ==
[~2022-02-25] VITALS: Ht 162.6 cm; Wt 61.4 kg
[2022-02-25] VITALS (14 sets, daily range): BP systolic 87–128; BP diastolic 17–79
[~2022-02-25 01:47] MED LIST changes: -HYDR-4070 PO; -METO25TA6 PO; -NITR0.4T48 SL; -POTA-206 PO; +SULF1TAB49 PO; +TRAZ-251 PO
[2022-02-25 04:44] LABS: BASOPHILS # (AUTO) 0.1 X10'3 (0-0.2); BASOPHILS % (AUTO) 1.5 % (0-1); EOSINOPHILS % (AUTO) 0.8 % (0-6); HEMATOCRIT 24.7 % (42.0-52.0); HEMOGLOBIN 8.1 g/dl (14.0-17.9); LYMPHOCYTES # (AUTO) 0.4 X10'3 (1.1-4.8); LYMPHOCYTES % (AUTO) 9.2 % (21-51); MEAN CORPUSCULAR HEMOGLOBIN 29.3 PG (27.0-31.0); MEAN CORPUSCULAR HGB CONC 32.6 g/dL (33.0-36.5); MEAN CORPUSCULAR VOLUME 89.9 FL (78-98); MEAN PLATELET VOLUME 10.4 FL (7.4-10.4); MONOCYTES # (AUTO) 0.6 X10'3 (0-0.9); MONOCYTES % (AUTO) 12.1 % (2-12); NEUTROPHILS # (AUTO) 3.6 X10'3 (1.8-7.7); NEUTROPHILS % (AUTO) 76.4 % (42-75); PLATELET COUNT 105 X10'3 (140-440); RED BLOOD COUNT 2.75 X10'6 (4.70-6.10); RED CELL DISTRIBUTION WIDTH 16.7 % (11.5-14.5); WHITE BLOOD COUNT 4.8 X10'3 (4.5-11.0)
[2022-02-25 04:53] LABS: APTT 31 SECONDS (22-32)
[2022-02-25 04:56] LABS: ALANINE AMINOTRANSFERASE 109 U/L (12-78); ALBUMIN 2.1 G/DL (3.4-5.0); ALBUMIN/GLOBULIN RATIO 0.7 (1.1-1.5); ALKALINE PHOSPHATASE 99 IU/L (46-116); ANION GAP 8 (8-16); ASPARTATE AMINO TRANSFERASE 36 U/L (10-37); BILIRUBIN,TOTAL 0.6 MG/DL (0.1-1.0); BLOOD UREA NITROGEN 70 MG/DL (7-18); BUN/CREATININE RATIO 24.3 (5.4-32.0); CALCIUM 7.8 MG/DL (8.5-10.1); CHLORIDE 107 MMOL/L (99-107); CREATININE 2.88 MG/DL (0.60-1.10); GLUCOSE 103 MG/DL (70-104); LIPASE 453 U/L (73-393); POTASSIUM 5.1 MMOL/L (3.5-5.1); SODIUM 135 MMOL/L (135-145); TOTAL CARBON DIOXIDE 19.8 MMOL/L (24-32); TOTAL PROTEIN 5.1 G/DL (6.4-8.2); eGFR 21 ML/MIN
--- NOTE | 2022-02-25 05:32 | NUR ---
Donna friedman in EDM - 02/25/22 at 0535 by [email or web address] [place] [facility] [place] AM[place] OF DARK LIQUID STOOL AND ALSO EMPTIED UROSTOMY. VSS. REPORTED TO DR. HERNANDEZ NO NEW ORDERS.
[2022-02-25] MEDS ORDERED: phytonadione inj. 2 MG in normal saline 100ml IV soln 100 ML IV ONE (05:35)
[2022-02-25] MEDS ORDERED: morphine 2 MG/ML inj. syringe IV PRN ×2 (05:35)
[2022-02-25] MEDS ORDERED: magnesium hydroxide 30ml (MOM) UD suspension PO PRN (05:35)
[2022-02-25] MEDS ORDERED: bisacodyl 10mg suppository rectal RC PRN (05:35)
[2022-02-25] MEDS ORDERED: ondansetron/PF 4mg/2ml inj IV PRN (05:35)
[2022-02-25] MEDS ORDERED: diphenhydrAMINE 25mg capsule PO PRN (05:35)
[2022-02-25] MEDS ORDERED: mag hydrox/Alum hydrox/simeth 30ml oral suspension PO PRN (05:35)
[2022-02-25] MEDS ORDERED: diphenhydrAMINE 50 mg/ml inj IV PRN (05:35)
[2022-02-25] MEDS ORDERED: HYDROcodone/acetaminophen 5mg/325mg tablet PO PRN (05:35)
[2022-02-25] MEDS ORDERED: acetaminophen 650mg rectal suppository RC PRN (05:35)
[2022-02-25] MEDS ORDERED: ondansetron 4mg rapidly disintigrating tab PO PRN (05:35)
[2022-02-25] MEDS ORDERED: acetaminophen 325mg tablet PO PRN ×2 (05:35)
[2022-02-25] MEDS ORDERED: normal saline 1000ml 1,000 ML IV SCH (05:35)
--- NOTE | 2022-02-25 05:36 | NUR ---
ASSISTED PATIENT TO [facility] HAD MOD AMT OF DARK LIQUID STOOL AND ALSO EMPTIED UROSTOMY. VSS. REPORTED TO DR. HERNANDEZ NO NEW ORDERS.
[2022-02-25] MEDS ORDERED: tranexamic acid inj. 1,000 MG in normal saline 100ml IV soln 90 ML IV ONE ×2 (05:40→10:30)
[2022-02-25] MEDS: pantoprazole 40MG/NS 100ML BAG 100 ML IV SCH ×3 (06:00→16:00)
[2022-02-25] MEDS: docusate sod 100mg capsule PO SCH ×2 (08:00→20:00)
[2022-02-25 08:10] LABS: CREATINE KINASE 55 U/L (39-308); PHOSPHORUS 4.5 MG/DL (2.3-4.5)
[2022-02-25 09:32] LABS: MEAN CORPUSCULAR HEMOGLOBIN 29.2 PG (27.0-31.0); MEAN CORPUSCULAR HGB CONC 31.8 g/dL (33.0-36.5); MEAN PLATELET VOLUME 10.3 FL (7.4-10.4); PLATELET COUNT 110 X10'3 (140-440); RED BLOOD COUNT 2.28 X10'6 (4.70-6.10); RED CELL DISTRIBUTION WIDTH 16.7 % (11.5-14.5); WHITE BLOOD COUNT 5.3 X10'3 (4.5-11.0)
[2022-02-25 09:40] LABS: HEMOGLOBIN 6.7 g/dl (14.0-17.9)
[2022-02-25] MEDS ORDERED: tranexamic acid 1gm/0.7% sal. 100 ML IV ONE (09:55)
--- NOTE | 2022-02-25 10:00 | NUR ---
PAGE SENT TO DR POE REGARDING TRANSFUSION ORDER PER BLOOD BANK.
[2022-02-25] MEDS ORDERED: DOPamine 400mg/D5W 250ml 250 ML IV SCH (11:45)
[2022-02-25] MEDS ORDERED: MIDAZolam 1 MG/ML 5ML VIAL ONE (12:29)
[2022-02-25] MEDS ORDERED: LIDOcaine Viscous 15ml cup ONE (12:29)
[2022-02-25] MEDS ORDERED: fentaNYL/PF 50MCG/1 ML 2ML syringe ONE (12:29)
--- NOTE | 2022-02-25 12:39 | NUR ---
EDMD at bedside placing central line.
[2022-02-25] MEDS ORDERED: NORepinephrine 8mg/ 250ml NS 250 ML IV PRN ×2 (13:25→13:26)
--- NOTE | 2022-02-25 13:30 | NUR ---
NOTIFIED DR GALLEGOS BP NOT IMPROVING, HR INCREASED. OKAYED ORDER FOR LEVOPHED AND DC DOPAMINE.
--- NOTE | 2022-02-25 13:48 | NUR ---
BEDSIDE EGD BEING PERFORMED. RN PRESENT MONITORING PT VITALS. PT ON 3 LTR O2 NC. PT GIVEN VERCED AND FENTANYL BY GI PROTECTIVE SIGNAL REPAIRER.
[2022-02-25] MEDS ORDERED: epiNEPHrine 0.1mg/ml 10ml syringe ONE (14:14)
[2022-02-25 16:45] LABS: HEMATOCRIT 25.2 % (42.0-52.0); HEMOGLOBIN 8.1 g/dl (14.0-17.9); MEAN CORPUSCULAR HGB CONC 32.2 g/dL (33.0-36.5); MEAN CORPUSCULAR VOLUME 90.2 FL (78-98); MEAN PLATELET VOLUME 10.2 FL (7.4-10.4); PLATELET COUNT 106 X10'3 (140-440); RED BLOOD COUNT 2.79 X10'6 (4.70-6.10); RED CELL DISTRIBUTION WIDTH 17.4 % (11.5-14.5); WHITE BLOOD COUNT 8.6 X10'3 (4.5-11.0)
[2022-02-25 18:13] LABS: CLARITY,URINE CLOUDY (Clear); COLOR,URINE YELLOW (Yellow); GLUCOSE, URINE NEGATIVE (Neg); KETONES,URINE NEGATIVE (Neg); LEUKOCYTE ESTERASE ,URINE TRACE (Neg); NITRITES, URINE NEGATIVE (Neg); OCCULT BLOOD,URINE NEGATIVE (Neg); PROTEIN,URINE NEGATIVE (Neg); UROBILINOGEN,URINE 0.2 E.U/dL (0.2-1.0)
[2022-02-25 18:14] LABS: UA COLLECTION TYPE OTHER
--- NOTE | 2022-02-25 18:15 | NUR ---
PAGED TO DISCUSS CHANGE OF CONDITION. PT ALTERED, TACHYPNEIC AND REMAINS TACHYCARDIC.
[2022-02-25] MEDS ORDERED: furosemide 10 MG/1 ML 10ml inj IV ONE (18:20)
--- NOTE | 2022-02-25 18:23 | NUR ---
TELEPHONE ORDER RECIEVED BY DR. POE. ORDERS PLACED FOR STAT HEAD CT, CMP, CBC, ABG, LASIX 20MG IVP X 1. WILL CALL PIAN[employer] SOUNDING BOARD MATCHER DR. DILL FOR PT EVALUATION.
[2022-02-25 18:27] LABS: URIC ACID CRYSTALS 4+ /HPF (NEGATIVE)
[2022-02-25 18:35] LABS: RBC,URINE 0-2 /HPF (0-2)
[2022-02-25 18:36] LABS: BACTERIA,URINE 1+ /HPF (Neg); HYALINE CASTS 0-3 /LPF (NEGATIVE); SQUAMOUS EPITHELIAL CELL,UR FEW /LPF (FEW)
[2022-02-25] MEDS ORDERED: octreotide inj. 500 MCG in normal saline 100ml IV soln 97.5 ML IV SCH (18:50)
--- NOTE | 2022-02-25 19:00 | NUR ---
> RECEIVED PT WITH LEVOPHED AT 0.1 , DR. DILL AT BEDSIDE WANTED TO DEC LEVOPHED AT 0.5 , KEEP SBP > 90 INSTEAD OF MAP , CONTINUE PROTONIX DRIP , WITH NEW ORDERS MADE AND CARRIED OUT: ANOTHER 2ND UNIT PRBC, H& H Q4 , TRANEXAMIC 500MG INSTEAD OF 1 G IVF, SANDOSTATIN ( OCTREOTIDE) @ 50 ML/HR , HEARD ABOUT CANCELLING CT BUT UNSURE WHICH PART, PENDING RESPONSE FROM INTESIVIST
[2022-02-25] MEDS ORDERED: FURO20TA4 PO (19:13)
[2022-02-25 19:14] LABS: ABG BASE EXCESS -18.7 mmol/L (-2.0-2.0); ABG HCO3 6.8 mmol/L (22.0-26.0); ABG OXYGEN SATURATION 98.2 % (94-97); ABG PCO2 (T) 16.2 mmHg (35.0-48.0); ABG PO2 (T) 147.8 mmHg (75.0-100.0); ALLEN'S TEST POSITIVE; FCOHb 0.3 % (0.0-3.9); FLOW 2 L/min; FMetHb 0.4 % (0.0-1.5); FO2Hb 97.5 % (94-97); PATIENT TEMPERATURE 36.5; TOTAL HEMOGLOBIN 8.9 G/dl (14.0-17.9)
[2022-02-25] MEDS ORDERED: NITR0.4T48 SL (19:14)
[2022-02-25] MEDS ORDERED: METO25TA6 PO (19:14)
[2022-02-25] MEDS ORDERED: tranexamic acid inj. 1,000 MG in normal saline 100ml IV soln 100 ML IV ONE (19:15)
[2022-02-25] MEDS ORDERED: sodium bicarbonate (8.4%) 1 mEq/ml syringe IV ONE ×2 (19:35→20:50)
[2022-02-25 19:57] LABS: ALANINE AMINOTRANSFERASE 154 U/L (12-78); ALBUMIN 2.3 G/DL (3.4-5.0); ALBUMIN/GLOBULIN RATIO 0.8 (1.1-1.5); ALKALINE PHOSPHATASE 92 IU/L (46-116); ANION GAP 23 (8-16); ASPARTATE AMINO TRANSFERASE 169 U/L (10-37); BILIRUBIN,TOTAL 1.7 MG/DL (0.1-1.0); BLOOD UREA NITROGEN 73 MG/DL (7-18); BUN/CREATININE RATIO 22.7 (5.4-32.0); CALCIUM 8.2 MG/DL (8.5-10.1); CHLORIDE 112 MMOL/L (99-107); CREATININE 3.22 MG/DL (0.60-1.10); GLUCOSE 67 MG/DL (70-104); SODIUM 146 MMOL/L (135-145); TOTAL PROTEIN 5.3 G/DL (6.4-8.2); eGFR 18 ML/MIN
[2022-02-25 20:02] LABS: POTASSIUM 6.8 MMOL/L (3.5-5.1); TOTAL CARBON DIOXIDE 10.7 MMOL/L (24-32)
[2022-02-25 20:12] LABS: BASOPHILS % (AUTO) 0.3 % (0-1); EOSINOPHILS % (AUTO) 0 % (0-6); HEMATOCRIT 23.5 % (42.0-52.0); HEMOGLOBIN 7.5 g/dl (14.0-17.9); LYMPHOCYTES # (AUTO) 0.2 X10'3 (1.1-4.8); LYMPHOCYTES % (AUTO) 1.6 % (21-51); MEAN CORPUSCULAR HEMOGLOBIN 29.2 PG (27.0-31.0); MEAN CORPUSCULAR VOLUME 91.2 FL (78-98); MEAN PLATELET VOLUME 10.4 FL (7.4-10.4); MONOCYTES # (AUTO) 0.7 X10'3 (0-0.9); MONOCYTES % (AUTO) 6.3 % (2-12); NEUTROPHILS # (AUTO) 9.9 X10'3 (1.8-7.7); NEUTROPHILS % (AUTO) 91.8 % (42-75); PLATELET COUNT 99 X10'3 (140-440); RED BLOOD COUNT 2.57 X10'6 (4.70-6.10); RED CELL DISTRIBUTION WIDTH 18.3 % (11.5-14.5); WHITE BLOOD COUNT 10.8 X10'3 (4.5-11.0)
[2022-02-25] MEDS ORDERED: insulin regular, human 10 units/0.1 ml syringe IV ONE (20:50)
[2022-02-25] MEDS ORDERED: calcium chloride 100 MG/1 ML inj IV ONE (20:50)
[2022-02-25] MEDS ORDERED: dextrose 50%-water 50ml dispensing syringe IV ONE (20:50)
[2022-02-25] MEDS ORDERED: sodium bicarbonate (8.4%) inj. 150 MEQ in dextrose 5%-water 1,000 ML IV SCH (21:30)
[2022-02-25] MEDS ORDERED: vasopressin inj. 40 UNIT in normal saline 50ml IV soln 38 ML IV SCH (21:30)
--- NOTE | 2022-02-25 21:45 | NUR ---
> spoke with JOY OPERATOR Carmita ZAMBRANO, new orders received : INITIALLY WANTED A DIALYSIS CATHETER IN PLACED , TO SPEAK WITH SURGERY RESIDENTIAL SUBSTANCE ABUSE COUNSELOR AND DO CT ABDOMEN AND NO NEED FOR CT OF HEAD , PATIENT NEEDED BIPAP , PROVIDER SPOKE WITH DAUGHTEREVONNE ON THE PHONE, AND DAUGHTER REFUSED INTUBATION, NO ACLS MEDS , FAMILY DOESN'T HAVE DNR YET FOR THE PATIENT , DAIRY AND FOOD LABORATORY ASSISTANT/ SEC PAGED FOR RT FOR BIPAP , PATIENT STILL ON 2ND UNIT PRBC, MD ORDERED FOR VASOPRESSIN FOR BLOOD PRESSURE PRESSURE SUPPORT, NO TO DOPAMINE IT WILL MAKE HIM TACHY , HYPERKALEMIA PROTOCOL DONE PER ORDERED BY INSTENSIVIST , PT WAS UPGRADED TO NRB MASK BUT STILL SPO2 DOWN TO 80 % WITH A GOOD WAVEFORM , INSTENSIVIST AND RT AWARE
[2022-02-25 21:52] LABS: ALBUMIN 1.9 G/DL (3.4-5.0); ANION GAP 23 (8-16); BLOOD UREA NITROGEN 79 MG/DL (7-18); BUN/CREATININE RATIO 23.2 (5.4-32.0); CALCIUM 7.9 MG/DL (8.5-10.1); CHLORIDE 108 MMOL/L (99-107); CREATININE 3.41 MG/DL (0.60-1.10); GLUCOSE 56 MG/DL (70-104); SODIUM 140 MMOL/L (135-145); eGFR 17 ML/MIN
--- NOTE | 2022-02-25 22:01 | NUR ---
Wilma Krishna> RT AT BEDSIDE WITH BIPAP ; 2 DAUGHTERS AT BEDSIDE , EVONNE AND VIV AT BEDSIDE, PT REFUSED BIPAP, DAUGHTER EXPLAINED THE NEED AND PT STILL REFUSED, DAUGHTERS DOESN'T HAVE THE DNR BUT REFUSED CPR, NO ACLS MEDS, REFUSED DIALYSIS PLACEMENT > CRITICAL VALUE RECEIVED : k=6.4, CO2 =9.0, NO SURGERY > HAVE TO RELAY TO LEVEL VIAL INSPECTOR IF WE COULD PROCEED TO CT NOW , BUT PT IS TOO UNSTABLE
[2022-02-25 22:02] LABS: POTASSIUM 6.4 MMOL/L (3.5-5.1)
--- NOTE | 2022-02-25 22:17 | NUR ---
>DNR WITH COMFORT CARE IN ; REFUSED BIPAP
[2022-02-25] MEDS ORDERED: LORazepam 2 mg/ml vial IV PRN (23:25)
[2022-02-25] MEDS ORDERED: morphine 4 MG/ML inj SYRINge IV PRN (23:25)
[2022-02-25] MEDS ORDERED: morphine/NS 100mg/100ml bag 100 ML IV SCH (23:30)
--- NOTE | 2022-02-25 23:45 | NUR ---
> All drips stopped or dc'd per MD ode and DNR comfort care protocol > IV PUMP OUT OF ROOM, LIGHTS OFF, MONITOR OFF, DAUGHTERS AT BEDSIDE, DUE MORPHINE AND ATIVAN IV PUSHES GIVEN Q15 WHILE WAITING FOR MORPHINE IV DIP
[2022-02-26] MEDS ORDERED: piperacillin/tazo 3.375gm/50ml 50 ML IV SCH
[2022-02-26 00:48] VITALS: BP 0/0
--- NOTE | 2022-02-26 00:48 | NUR ---
> PATIENT , VERIFIED by ED MD, PT HAS STILL REFLEXES, PT WAS GRUNTING BEFORE PATIENT , MORPHINE DRIP WAS RECEIVED ONLY A FEW MINS , CHECKED FEMORAL PULSE = 0
--- NOTE | 2022-02-26 01:30 | NUR ---
> ALL COORDINATION WITH ORGAN DONATION , OR MORTUARY FINAL PLANS WAS ASSISTED BY ED LEASE ADMINISTRATOR TOGETHER WITH DAUGHTERS NEAREST OF KIN, AWAITING RESPONSE FROM MORTUARY
--- NOTE | 2022-02-26 01:52 | NUR ---
pt at 0048 [facility] aide notified of patient expiration. family was at bedside organ donor network notified of expiration, attempted to contact [employer] without success will attempt again in 30 min.
--- NOTE | 2022-02-26 02:33 | NUR ---
contacted [facility]ma they will have a school bus driver contact the department with an eta, number contacted
--- NOTE | 2022-02-26 03:15 | NUR ---
> SPOKE WITH ORGAN DONATION AND PER SE: " NOT A CANDIDATE FOR AN ORGAN DONATION" RELEASE FROM THEIR END
--- NOTE | 2022-02-26 06:27 | NUR ---
> INFORMED PHARMACY ABOUT WASTING MORPHINE IV THAT WAS ONLY INFUSED 5 MINS FOR COMFORT CARE ( DNR) PRIOR TO PATIENT PASSING OR BEING AT 0048h, PER NIGHT FLOOR WINDER ( DON) TO TAKE IT TO PHARMACY AND HAVE IT COSIGNED WITH PHARMACIST AND TO INFORM PHARMACIST TO WASTE IT WITH PHARMACIST
--- NOTE | 2022-02-26 06:29 | NUR ---
AWAITING TRANSPORT , PT HAS STILL CENTRAL LINE Addendum: 02/26/22 at 0629 by [email or web address] AWAITING TRANSPORT , PT HAS STILL CENTRAL LINE-- PER ED SAND BUFFER ( NIGHT AND DAY ) TO LEAVE IT WHILE AWAITING TRANSPORT , 2PIVS AND 1 CVC RIJ QUAD LUMEN
--- NOTE | 2022-02-26 07:10 | NUR ---
ELIESER HERE TO GARAGE DOOR TECHNICIAN PT.
== END 2022-02-26 09:08 | DRG 871 ==
LOC: ER 01:47 → ED HOLD 05:34 → UNDOADMIN 05:34 → ED HOLD 11:47
PROVIDERS: ADMIT Family Medicine; ATTEND Internal Medicine
PROC: 0DB68ZX Excision of Stomach, Via Natural or Artificial Opening Endoscopic, Diagnostic (ICD-10-PCS; principal; 2022-02-25)
PROC: 0W3P8ZZ Control Bleeding in Gastrointestinal Tract, Via Natural or Artificial Opening Endoscopic (ICD-10-PCS; 2022-02-25)
PROC: 30233N1 Transfusion of Nonautologous Red Blood Cells into Peripheral Vein, Percutaneous Approach (ICD-10-PCS; 2022-02-25)
PROC: 05HY33Z Insertion of Infusion Device into Upper Vein, Percutaneous Approach (ICD-10-PCS; 2022-02-25)
PROC: 0D9670Z Drainage of Stomach with Drainage Device, Via Natural or Artificial Opening (ICD-10-PCS; 2022-02-25)
DX: A41.9 Sepsis, unspecified organism (principal); G93.41 Metabolic encephalopathy; K29.01 Acute gastritis with bleeding; J96.01 Acute respiratory failure with hypoxia; R65.21 Severe sepsis with septic shock; K72.00 Acute and subacute hepatic failure without coma; N17.0 Acute kidney failure with tubular necrosis; I50.43 Acute on chronic combined systolic (congestive) and diastolic (congestive) heart failure; K26.4 Chronic or unspecified duodenal ulcer with hemorrhage; D62 Acute posthemorrhagic anemia; D68.9 Coagulation defect, unspecified; E87.0 Hyperosmolality and hypernatremia; E87.20 Acidosis, unspecified; I42.9 Cardiomyopathy, unspecified; K76.6 Portal hypertension; N18.4 Chronic kidney disease, stage 4 (severe); Z66 Do not resuscitate; R57.8 Other shock; D69.6 Thrombocytopenia, unspecified; E86.1 Hypovolemia; E87.5 Hyperkalemia; K21.00 Gastro-esophageal reflux disease with esophagitis, without bleeding; E88.09 Other disorders of plasma-protein metabolism, not elsewhere classified; I27.21 Secondary pulmonary arterial hypertension; R19.7 Diarrhea, unspecified; I25.10 Atherosclerotic heart disease of native coronary artery without angina pectoris; K76.0 Fatty (change of) liver, not elsewhere classified; Z79.02 Long term (current) use of antithrombotics/antiplatelets; I25.2 Old myocardial infarction; Z80.1 Family history of malignant neoplasm of trachea, bronchus and lung; Z85.51 Personal history of malignant neoplasm of bladder; Z87.440 Personal history of urinary (tract) infections; Z87.442 Personal history of urinary calculi; Z93.6 Other artificial openings of urinary tract status; Z88.8 Allergy status to other drugs, medicaments and biological substances; Z79.899 Other long term (current) drug therapy
CPT/HCPCS: 36415; 36430; 36600; 43227; 43239; 43243; 43255; 71045; 74018; 80048; 80053; 81001; 82550; 82803; 82948; 83690; 83735; 83880; 84100; 84443; 84484; 85018; 85025; 85027; 85610; 85730; 86885; 86900; 86901; 86920; 87088; 88305; 88342; 93005; 99152; 99153; 99285; A4353; A4615; A6250; C1751; C1758; C9113; G0378; J0171; J1265; J1815; J1940; J2060; J2250; J2270; J2274; J2354; J3010; J3430; J3490; J7030; J7050; P9016